=== PATIENT | female | born 1935 | race Caucasian/White ===

== ENCOUNTER 2016-12-29 10:50 | Outpatient (CLI) | payer MEDICARE ==
[2016-12-29 11:52] LABS: CREATININE 0.8 mg/dL (0.4-1.0)
[2016-12-29] MEDS ORDERED: IOPAMIDOL-300 100 ML VIAL ONE (12:11)
[2016-12-29] MEDS ORDERED: IOPAMIDOL-300 100 ML VIAL IVP ONE (12:33)
--- NOTE | 2016-12-29 17:41 | CT Report ---
EXAM: CT SOFT TISSUE NECKWITH CONTRAST. EXAM DATE: 12/29/2016 12:35 PM. HISTORY: Dysphagia, left vocal cord paralysis. Right thyroid mass. COMPARISONS: Ultrasound neck 11/22/2015 TECHNIQUE: Routine soft tissue neck CT protocol. Reconstructions: Coronal and sagittal. IV contrast: Amt/Type. In accordance with CT protocol optimization, one or more of the following dose reduction techniques w ere utilized for this exam: automated exposure control, adjustment of mA and/or KV based on patient s ize, or use of iterative reconstructive technique. FINDINGS: Visualized Intracranial Contents: Unremarkable. Orbits: Symmetric and unremarkable. Sinuses: Visualized paranasal sinuses and mastoid air cells are clear. Pharynx : Pharyngeal mucosa is unremarkable. The infratemporal fossa, parapharyngeal spaces, and retr opharyngeal space are unremarkable. The base of the tongue is symmetric and unremarkable. The airway is patent. Larynx: Larynx and supraglottic airway are patent without mass lesion. CT findings of left vocal cord paralysis including, medialized left true vocal cord (series 3 image 74), anteromedial rotation of t he left arytenoid cartilage (series 3 image 73), and enlarged left laryngeal ventricle. The visualize d trachea is unremarkable. Oral cavity and tongue: The visualized oral cavity is unremarkable. The floor of the mouth is symmetr ic. Parotid and Submandibular Glands: Symmetric and unremarkable. Lymph Nodes: No enlarged lymph nodes are identified in the cervical, supraclavicular, and visualized superior mediastinal regions. Soft tissues: There is abnormal soft tissue mass just to the left of the trachea and anterior to the esophagus (series 3 image 92, series 5 image 57), inseparable from left lateral tracheal wall and ins eparable from anterior esophageal wall, overall measuring 1.1 x 2.6 x 2.9 cm (AP by transverse by scraper hand niocaudal).. The lesion is also immediately posterior to the left lobe of the thyroid. This is along the expected course of the left recurrent laryngeal nerve and therefore is favored to represent etiol ogy for the patient's left vocal cord paralysis. The wall of the esophagus near the christa (series 3 image 124) appears diffusely thickened. Vascular Structures: Atherosclerosis of the aortic arch, no hemodynamically significant stenosis. Mod erate atherosclerosis of the carotid bifurcations and carotid bulbs bilaterally. Extensive atheroscle rosis origins of the cervical arteries. With at least moderate stenosis. Thyroid: There is a heterogeneous, peripherally hyperdense centrally hypodense right thyroid mass griffin suring 2.0 x 1.7 x 2.5 cm (AP by transverse by craniocaudal). The lesion does not demonstrate signifi cant interval increase in size compared to the prior ultrasound.. Lung: Band of fibrosis is seen within medial upper lobes of the lungs (series 3 image 94), likely rep resenting sequela of prior radiation therapy. The visualized lung apices are otherwise remarkable for mild centrilobular emphysema seen bilaterally. Bones: The bones are diffusely osteopenic. Moderate multilevel degenerative spondylosis of the spine, no acute fracture or malalignment. Other: None. IMPRESSION: 1. CT findings of left vocal cord paralysis including, medialized left true vocal cord (series 3 imag e 74), anteromedial rotation of the left arytenoid cartilage (series 3 image 73), and enlarged left l aryngeal ventricle. 2. Abnormal soft tissue mass just to the left of the trachea and anterior to the esophagus (series 3 image 92, series 5 image 57), inseparable from left lateral tracheal wall and inseparable from anteri or esophageal wall, overall measuring 1.1 x 2.6 x 2.9 cm (AP by transverse by craniocaudal).. The les ion is also immediately posterior to the left lobe of the thyroid. This is along the expected course of the left recurrent laryngeal nerve and therefore is favored to represent etiology for the patient' s left vocal cord paralysis. Possible etiologies for this mass include parathyroid adenoma/carcinoma, malignancy of the esophageal wall, malignancy of the tracheal wall, a metastasis, and enlarged lymph node. 3. A Heterogeneous, peripherally hyperdense centrally hypodense right thyroid mass measuring 2.0 x 1. 7 x 2.5 cm (AP by transverse by craniocaudal). The lesion does not demonstrate significant interval i ncrease in size compared to the prior ultrasound. The CT appearance is nonspecific for benign versus malignant etiology, with thyroid ultrasound being the gold standard for evaluation of thyroid lesions . Did the prior thyroid ultrasound result in diagnosis? Tissue sampling, with ultrasound guidance, co uld also be considered if no diagnosis has been made. 4. Extensive atherosclerotic vascular disease. 5. Band of fibrosis is seen within medial upper lobes of the lungs (series 3 image 94), likely repres enting sequela of prior radiation therapy. The visualized lung apices are otherwise remarkable for mi ld centrilobular emphysema seen bilaterally. [facility] Referring Provider Line: [phone] SITE ID: [id number]
== END 2016-12-29 10:51 | disposition home or self-care (01) ==
LOC: LAB 10:50
PROVIDERS: ATTEND Otolaryngology
DX: R13.14 Dysphagia, pharyngoesophageal phase (principal); E07.9 Disorder of thyroid, unspecified; J38.01 Paralysis of vocal cords and larynx, unilateral; J38.7 Other diseases of larynx
CPT/HCPCS: 36415; 70491; 82565; Q9967

== ENCOUNTER 2017-01-20 10:13 | Outpatient (CLI) | payer MEDICARE ==
[2017-01-20] MEDS ORDERED: BARIUM SULFATE 148 GM POWDER PO ONE (11:13)
[2017-01-20] MEDS ORDERED: BARIUM SULFATE 454 GM TUBE PO ONE (11:13)
--- NOTE | 2017-01-20 11:39 | XRAY Report ---
MODIFIED BARIUM SWALLOW WITH SPEECH PATHOLOGY: 01/20/2017 HISTORY: Choking sensation, change in voice, swallowing difficulty. FINDINGS: Fluoroscopic assistance was provided Alanis from Speech Therapy for a modified barium swall ow. The patient is given a variety of liquids, semisolids, and solids to swallow by mouth. There is poor bolus control with material collecting in the vallecula. One episode of penetration an d questionable aspiration occurred with mixed fruit ingestion. FLUOROSCOPY TIME: 1 minute, 52 seconds. NUMBER OF IMAGES: 99. IMPRESSION: MODIFIED BARIUM SWALLOW WITH SPEECH PATHOLOGY. SEE FORM[facility] SPEECH PATHOLOGY REPORT. JOB #: [id number] EXT JOB #:[id number]
== END 2017-01-20 10:14 | disposition home or self-care (01) ==
LOC: DI 10:13
PROVIDERS: ATTEND Physician Assistant Medical
DX: R13.10 Dysphagia, unspecified (principal)
CPT/HCPCS: 74230; 92611; G8996; G8997; G8998

== ENCOUNTER 2017-03-06 08:00 | Outpatient (CLI) | payer MEDICARE ==
[2017-03-06 17:43] LABS: BASOPHILS # (AUTO) 0.1 10^3/uL (0.0-0.1); BASOPHILS % (AUTO) 0.8 %; EOSINOPHILS # (AUTO) 0.2 10^3/uL (0.0-0.7); EOSINOPHILS % (AUTO) 1.5 %; HGB - HEMOGLOBIN 10.9 g/dL (12.0-16.0); LYMPHOCYTES # (AUTO) 3.7 10^3/uL (1.5-3.5); LYMPHOCYTES % (AUTO) 25.8 %; MEAN CORPUSCULAR HEMOGLOBIN 26.2 pg (27.0-31.0); MEAN CORPUSCULAR HGB CONC 31.8 g/dL (32.0-36.0); MEAN CORPUSCULAR VOLUME 82.5 fL (81.0-99.0); MEAN PLATELET VOLUME 8.2 fL (7.9-10.8); MONOCYTES # (AUTO) 1.5 10^3/uL (0.0-1.0); MONOCYTES % (AUTO) 10.4 %; NEUTROPHILS # (AUTO) 8.7 10^3/uL (1.5-6.6); NEUTROPHILS % (AUTO) 61.5 %; PLT - PLATELET COUNT 364 10^3/uL (130-450); RED BLOOD COUNT 4.16 10^6/uL (4.20-5.40); RED CELL DISTRIBUTION WIDTH 16.6 % (12.0-15.0); WHITE BLOOD COUNT 14.2 x10^3/uL (4.8-10.8)
[2017-03-06 18:03] LABS: ALBUMIN 3.6 g/dL (3.2-5.5); ALBUMIN/GLOBULIN RATIO 0.8 (1.0-2.2); ALKALINE PHOSPHATASE 115 IU/L (42-121); ALT ALANINE AMINOTRANSFERASE 11 IU/L (10-60); AST ASPARTATE AMINOTRANSFERASE 15 IU/L (10-42); BILIRUBIN,TOTAL 0.4 mg/dL (0.2-1.0); BUN - BLOOD UREA NITROGEN 17 mg/dL (6-20); CALCIUM 9.3 mg/dL (8.5-10.3); CARBON DIOXIDE - CO2 30 mmol/L (21-32); CHLORIDE 100 mmol/L (101-111); CREATININE 0.8 mg/dL (0.4-1.0); GFR - MDRD 69 (>89); GLUCOSE 154 mg/dL (70-100); SODIUM 141 mmol/L (135-145); TOTAL PROTEIN 7.9 g/dL (6.7-8.2)
[2017-03-06 18:31] LABS: HB2 TOTAL 11.9 g/dL; HEMOGLOBIN A1C 0.53 g/dL; HEMOGLOBIN A1C % 6.2 % (4.6-6.2)
== END 2017-03-06 08:01 | disposition home or self-care (01) ==
LOC: LAB.F 08:00
PROVIDERS: ATTEND Physician Assistant Medical
DX: I10 Essential (primary) hypertension (principal); E03.9 Hypothyroidism, unspecified; E11.9 Type 2 diabetes mellitus without complications
CPT/HCPCS: 36415; 80053; 83036; 84443; 85025

== ENCOUNTER 2017-06-12 19:24 | Outpatient (CLI) | payer MEDICARE | END 2017-06-12 19:25 | disposition short-term general hospital (02) | LOC: EMS 19:24 | PROVIDERS: ATTEND Surgery | DX: R42 Dizziness and giddiness (principal); R20.0 Anesthesia of skin; R53.1 Weakness | CPT/HCPCS: A0170; A0425; A0427 ==